=== PATIENT | male | born 1935 | race Caucasian/White ===

== ENCOUNTER → 2017-09-16 | Outpatient (CLI) | payer MEDICARE, OTHER ==
[~2017-09-16] MED LIST: ACETAMINOPHEN325 M1 PO; ADVIL100 M2 PO; ALLERGY RELIEF10 M3 PO; ALLOPURINOL 30300 M2 PO; ANALPRAM HC 1%30 GM; APAP500 PO; APAP650 PO; ASA81BEC PO; BENAZEPRIL HCL20 MG PO; COLACE100 MG PO; COLCHICINE 0.60.6 M1 PO; COLCRYS PO; IBUPROFEN 200200 M1 PO; ISOSORBIDE MONO30 M1 PO; K-DUR 20 MEQ T20 MEQ PO; LASIX 40 MG TAB40 M1 PO; LIPITOR20 MG PO; MUCINEX600 MG PO; MULTIVITAMINS; PRILOSEC 20 MG20 MG PO; PRILOSEC20 MG PO; STEROID EYE DROP OPHTHALMIC; TOPICORT15 G1 TP; TYLENOL325 MG PO; VITAMIN D-32000 UNIT PO; VITAMIN D1000 UNIT PO; VITAMIN D250000 UNIT PO; ZEASORB; [UNRECOGNIZED DRUG - REMARK] OPHTHALMIC; [UNRECOGNIZED DRUG - REMARK] OTIC
== END ==
LOC: M.ULTRA 10:49
DX: N50.3 Cyst of epididymis (principal)

== ENCOUNTER → 2018-01-27 | Outpatient (CLI) | payer MEDICARE, OTHER ==
--- NOTE | 2018-01-27 13:38 | EXE ---
[place] [address] STRESS ECHOCARDIOGRAM Name: WERNER RASCON Room: [facility]#: [id number] Admission: 01/27/18 Attend Phys: Stephanie Chaidez Discharge: Date of : 37 Date of Service: 01/27/18 1337 Report #: [id number] THIS REPORT FOR: //name// APPROVED REPORT Study performed: 01/27/2018 11:18:28 Exam: Dobutamine Stress Echo Indication: Dyspnea , Dizziness Patient Location: Out-Patient Stress Nurse: Roya Mcpherson RN Supervising Physician: Flavio Menjivar MD Status: routine Ht: 6 ft 1 in HR: 72 bpm BP: 125/61 mmHg Rhythm: NSR Medical History Cardiac Risk Factors: Hyperlipidemia, HTN, FHX of CAD Procedure The patient underwent an Exercise Stress Test using the Catracho Protocol. Blood pressure, heart rate, and EKG were monitored. An Echocardiogram was performed by fabrication technician in four stages in quad fashion. At peak stress, four selected images were obtained and placed side by side with resting images for comparison. Echo Enhancing Agent Indication: Endocardial border delineation Agent(s) / Amount(s) Used: Optison 10 cc Stress Test Details Stress Test: Pharmacological Stress Test using Dobutamine. HR Resting HR: 72 bpm Max Heart Rate (APMHR): 139 bpm Max HR Achieved: 118 bpm Target HR (85% APMHR): 118 bpm % of APMHR: 84 Recovery HR: 91 bpm HR response to stress: Normal HR response to stress BP Resting BP: 125/61 mmHg Max BP: 116/33 [place] [address] STRESS ECHOCARDIOGRAM Name: WERNER RASCON Room: [facility]#: [id number] Admission: 01/27/18 Attend Phys: Stephanie Garcia [facility] Discharge: Date of : 37 Date of Service: 01/27/181336 Report #: [id number] Recovery BP: 114/41 mmHg ECG Clinical Reason for Termination: Completed protocol Pre-Stress Echo The resting Echocardiogram showed normal left ventricular contractility with an estimated Ejection Fraction of about 55-60%. Normal wall motion in all segments on baseline images. Post-Stress Echo The stress Echocardiogram showed normal left ventricular contractility with an estimated Ejection Fraction of about >70%. Normal augmentation of wall motion in all segments on post stress images. Conclusion Clinical Response: Non-ischemic Stress ECG Response: Indeterminant Stress Echo Images: Non-ischemic Other Information Technically limited study due to body habitus. <ELECTRONICALLY SIGNED> By: Flavio Menjivar MD, [facility] 01/27/18 1337 36 1337 Flavio Menjivar MD, FACC /INF
== END ==
LOC: M.ULTRA 09:36 → M.CRD 11:00
DX: G45.9 Transient cerebral ischemic attack, unspecified (principal); R42 Dizziness and giddiness

== ENCOUNTER → 2018-03-08 | Outpatient (CLI) | payer MEDICARE, OTHER | LOC: M.RAD 17:02 | DX: R06.2 Wheezing (principal); R06.02 Shortness of breath; I10 Essential (primary) hypertension; E78.5 Hyperlipidemia, unspecified ==

== ENCOUNTER → 2018-04-22 | Outpatient (CLI) | payer MEDICARE, OTHER ==
[2018-04-22 11:52] LABS: CALCIUM 9.5 mg/dL (8.5-10.1); CREATININE 1.1 mg/dL (0.6-1.3); POTASSIUM 4.3 mmol/L (3.5-5.1)
== END ==
LOC: M.LAB 11:11
PROVIDERS: Nurse Practitioner
DX: I50.32 Chronic diastolic (congestive) heart failure (principal); E78.5 Hyperlipidemia, unspecified; I10 Essential (primary) hypertension

== ENCOUNTER 2018-10-01 11:37 | Inpatient (IN) | payer MEDICARE, OTHER ==
[~2018-10-01] VITALS: Ht 188 cm; Wt 127.0 kg
[~2018-10-01 11:37] MED LIST changes: +ALLERGY RELIEF10 M1 PO; -ALLERGY RELIEF10 M3 PO; -PRILOSEC20 MG PO; -ZEASORB; +ZEASORB POWDER71 GM TP
[2018-10-01 11:38] VITALS: BP 149/73
[2018-10-01] MEDS ORDERED: FIBER0.4 GM PO (11:47)
[2018-10-01] MEDS ORDERED: FLOMAX0.4 MG PO (11:47)
[2018-10-01] MEDS ORDERED: AVAPRO75 MG PO (11:47)
[2018-10-01] MEDS ORDERED: MAXZIDE-25 MG1 EACH PO (11:47)
[2018-10-01 12:25] LABS: ABSOLUTE EOSINOPHILS 0.2 thou/uL (0.0-0.7); ABSOLUTE LYMPHOCYTES 1.6 thou/uL (0.8-5.3); ABSOLUTE MONOCYTES 0.3 thou/uL (0.0-1.2); ABSOLUTE NEUTROPHILS 2.8 thou/uL (1.6-8.1); BASOPHILS 0.7 %; EOSINOPHILS 4.2 %; HEMATOCRIT 42.5 % (42.0-52.0); HEMOGLOBIN 14.4 gm/dL (14.0-18.0); MCH 33.7 pg (26.0-34.0); MCV 99.1 fL (80.0-100.0); MONOCYTES 5.1 %; MPV 7.6 fl. (7.2-11.1); NUCLEATED RBCS 0 /100WBC; PLATELET COUNT* 175 thou/uL (150-400); RBC 4.29 mil/uL (4.50-6.00); RDW-CV 13.5 % (10.5-14.5); WBC 4.9 thou/uL (4.0-11.0)
[2018-10-01 12:36] LABS: APTT 27.1 Seconds (25.0-31.3); INR 1.1; PROTIME 10.8 Seconds (9.20-11.50)
[2018-10-01 12:45] LABS: ANION GAP 6 mmol/L (7-16); BUN 19 mg/dL (7-18); CHLORIDE 96 mmol/L (98-107); CO2 31 mmol/L (21-32); CREATININE 1.3 mg/dL (0.6-1.3); GLUCOSE 166 mg/dL (70-99); SODIUM 133 mmol/L (136-145); TROPONIN-I LEVEL <0.06 ng/mL (<0.06)
[2018-10-01 12:46] LABS: ALBUMIN 3.4 g/dL (3.4-5.0); ALKALINE PHOSPHATASE 108 U/L (46-116); CK-MB MASS 0.8 ng/mL (<0.5-3.6); LIPASE 213 U/L (73-393); MAGNESIUM 1.6 mg/dL (1.8-2.4); NT-PRO BRAIN NAT PEPTIDE 41 pg/mL (<300); SGOT 25 U/L (15-37); SGPT 31 U/L (30-65); TOTAL BILIRUBIN 0.9 mg/dL (<0.1-1.0); TOTAL PROTEIN 7.1 g/dL (6.4-8.2)
[2018-10-01 15:00] VITALS: BP 131/69
[2018-10-01 15:10] VITALS: BP 111/58
[2018-10-01 20:00] VITALS: BP 101/55
[2018-10-02] VITALS: BP 88/39
[2018-10-02 04:00] VITALS: BP 95/33
--- NOTE | 2018-10-02 05:39 | NUR ---
PT REMAINED ON ROOM AIR FOR ALL OF NOC OX.
[2018-10-02 08:00] VITALS: BP 101/56
--- NOTE | 2018-10-02 08:22 | CON ---
[address] [address] CONSULTATION Name: WERNER RASCON Room: [address] IN ..#: [id number] Admission: 10/01/18 Attend Phys: Leandro Naylor MD Discharge: Date of : 37 Report #: [id number] THIS REPORT FOR: //name// CC: Leandro Love TYPE OF REPORT: Cardiology consultation. INDICATION: Chest pain. HISTORY OF PRESENT ILLNESS: The patient is an 83-year-old white male who was admitted with chest discomfort this morning. He states his pain began last night for a prolonged period of time and radiated to his left arm. He describes the pain as being rather severe and associated with some shortness of breath. The pain occurred while he was watching TV. The pain then did resolve. He was able to sleep; however, this morning when he awoke, he continued to have pain radiating to his left arm associated with some dizziness. He presented to the Emergency Room for further evaluation. At the time of my interview, he is pain free. He is without other cardiac complaint at this time. A 12-lead EKG showed no acute ST elevations abnormalities. Troponins were unremarkable. PAST MEDICAL HISTORY: 1. 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 2. Hypertension. 3. Hyperlipidemia. 4. Type 2 diabetes mellitus. PAST SURGICAL HISTORY: 1. Tonsillectomy. 2. Appendectomy. 3. Cholecystectomy. 4. Back surgery. ALLERGIES: No known drug allergies. HOME MEDICATIONS: Omeprazole 20 mg daily, Tylenol p.r.n., Avapro 75 mg daily, Flomax 0.4 mg daily, Maxzide 25 one tablet daily, fiber tablets 0.4 grams daily, Lotensin 20 mg b.i.d., Colace 100 mg p.r.n., multivitamin 1 tablet daily, enteric-coated aspirin 81 mg daily, loratadine 10 mg daily, Mucinex 1200 mg q. 12 hours, Colcrys 0.6 mg daily, allopurinol 300 mg daily, atorvastatin 40 mg at bedtime, ibuprofen p.r.n. and vitamin D 1000 units weekly. FAMILY HISTORY: The patient's father had heart disease. SOCIAL HISTORY: The patient is . He is a lifelong nonsmoker. 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 He wears glasses without acute visual loss, otherwise unremarkable. PHYSICAL EXAMINATION: VITAL SIGNS: Blood pressure 111/58 and pulse 70 and regular. GENERAL: This is a pleasant gentleman in no distress. Mood and affect appropriate. HEENT: The extraocular muscles are intact. Mucous membranes are moist. NECK: Shows no jugular venous distention. There are no carotid bruits. CHEST: Reveals clear lung goldsmith without wheezes, rales or rhonchi. CARDIOVASCULAR: Reveals regular rhythm with normal S1 and S2. I do not appreciate gallop or murmur. ABDOMEN: Reveals normal bowel sounds. The abdomen is soft and nontender. EXTREMITIES: Shows trace edema. Peripheral pulses are 2+ and easily palpable. SKIN: Warm and dry. RADIOLOGICAL DATA: A 12-lead EKG shows sinus rhythm without acute ST or T-wave abnormality. LABORATORY DATA: Labs are reviewed. Troponin is less than 0.06 on 2 separate occasions. NT-pro-BNP is 41. IMPRESSION AND RECOMMENDATIONS: 1. Coronary artery disease. The patient has recurrent chest discomfort. He has not had pain for some time until now. At this point in time, I believe noninvasive stress testing would be indicated. We will evaluate overnight and consider whether the patient could be discharged to home and follow up with outpatient stress testing versus remaining in the hospital for stress testing, pending results of final enzymes and clinical course. 2. Hypertension, adequately controlled on cardiac regimen outlined above. 3. Hyperlipidemia. Continue atorvastatin 40 mg at bedtime. 4. Type 2 diabetes mellitus per primary physician. <ELECTRONICALLY SIGNED> By: Eugene Vizcaino MD, FACC 10/02/18 0822 [id number] [id number] Vizcaino MD, FACC /nt
--- NOTE | 2018-10-02 10:49 | NUR ---
PT A/O, TELE TRACKING NSR WITH 1ST AVB AND BBB, ALL VSS ON ROOM AIR. CONTINUES TO DENY CP, SOA. LOOKING FORWARD TO DC LATER TODAY. EDUCATED ON SAFETY AND PLAN OF CARE. PLEASE ASSESSMENT FOR ADDITIONAL INFORMATION. WILL CONT TO MONITOR
[2018-10-02 11:14] VITALS: BP 101/56
--- NOTE | 2018-10-02 12:12 | EKG ---
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 : 1935 Requested By: Tyshawn Wagner Order Number: [id number] MD: Eugene Vizcaino Measurements Intervals [place] Rate: 86 P: -1 AL: 198 QRS: -61 QRSD: 141 T: 121 QT: 420 QTc: 503 Interpretive Statements Sinus rhythm Ventricular premature complexes IVCD, consider atypical RBBB Anterolateral infarct, age indeterminate, possible Compared to ECG 08/14/2013 09:32:35 Ventricular premature complex(es) now present Myocardial infarct finding still present Electronically Signed On 10-02-2018 12:12:28 CDT by Eugene Vizcaino [email or web address] <ELECTRONICALLY SIGNED> By: Eugene Vizcaino MD, FACC 10/02/18 1212 1140 1140 Eugene Vizcaino MD, FACC /EPI
== END 2018-10-02 11:53 | disposition home or self-care (01) | DRG 313 ==
LOC: M.ERS 11:37 → M.TBA-ER 13:06 → M.2W 15:43
PROVIDERS: Emergency Medicine
DX: R07.89 Other chest pain (principal); I10 Essential (primary) hypertension; I25.10 Atherosclerotic heart disease of native coronary artery without angina pectoris; E78.5 Hyperlipidemia, unspecified; E11.9 Type 2 diabetes mellitus without complications; Z79.82 Long term (current) use of aspirin; Z79.899 Other long term (current) drug therapy; Z79.1 Long term (current) use of non-steroidal anti-inflammatories (NSAID); Z82.49 Family history of ischemic heart disease and other diseases of the circulatory system; Z90.49 Acquired absence of other specified parts of digestive tract

== ENCOUNTER 2019-05-19 13:02 | Inpatient (IN) | payer MEDICARE, OTHER ==
[~2019-05-19] VITALS: Ht 185.4 cm; Wt 129.3 kg
[~2019-05-19 13:02] MED LIST changes: +ALLOPURINOL 10100 M1 PO; -ALLOPURINOL 30300 M2 PO; +AVAPRO75 MG PO; +FIBER0.4 GM PO; +FLOMAX0.4 MG PO; +MAXZIDE-25 MG1 EACH PO
[2019-05-19 13:06] VITALS: BP 141/97
[2019-05-19 13:47] LABS: ABSOLUTE EOSINOPHILS 0.1 thou/uL (0.0-0.7); ABSOLUTE LYMPHOCYTES 1.8 thou/uL (0.8-5.3); ABSOLUTE MONOCYTES 0.6 thou/uL (0.0-1.2); BASOPHILS 0.4 %; EOSINOPHILS 1.8 %; HEMATOCRIT 42.8 % (42.0-52.0); HEMOGLOBIN 14.9 gm/dL (14.0-18.0); LYMPHOCYTES 27.6 %; MCH 34.7 pg (26.0-34.0); MCHC 34.8 g/dL (28.0-37.0); MCV 99.9 fL (80.0-100.0); MONOCYTES 8.6 %; MPV 8.2 fl. (7.2-11.1); NUCLEATED RBCS 0 /100WBC; PLATELET COUNT* 179 thou/uL (150-400); POLYS 61.6 %; RBC 4.28 mil/uL (4.50-6.00); RDW-CV 13.3 % (10.5-14.5); WBC 6.5 thou/uL (4.0-11.0)
[2019-05-19 13:53] LABS: CREATININE 1.1 mg/dL (0.6-1.3)
[2019-05-19 13:58] LABS: PROTIME 10.7 Seconds (9.20-11.50)
[2019-05-19 14:03] LABS: ALBUMIN 3.6 g/dL (3.4-5.0); TOTAL BILIRUBIN 0.9 mg/dL (<0.1-1.0); TOTAL PROTEIN 7.8 g/dL (6.4-8.2)
--- NOTE | 2019-05-19 14:40 | EKG ---
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 : 1935 Requested By: Mahsa Potter Order Number: [id number] MD: Flavio Menjivar Measurements Intervals [place] Rate: 76 P: 77 CA: 225 QRS: -27 QRSD: 137 T: 128 QT: 399 QTc: 449 Interpretive Statements Sinus rhythm Prolonged CA interval Nonspecific intraventricular conduction delay Nonspecific T abnrm, anterolateral leads Compared to ECG 10/01/2018 11:40:38 First degree AV block now present Ventricular premature complex(es) no longer present Electronically Signed On 05-19-2019 14:39:59 CDT by Flavio Menjivar [email or web address] <ELECTRONICALLY SIGNED> By: Flavio Menjivar MD, [facility] 05/19/19 1439 1308 1308 Flavio Menjivar MD, [facility] /EPI
[2019-05-19 17:13] LABS: URINE BILIRUBIN NEGATIVE (Negative); URINE BLOOD NEGATIVE (Negative); URINE CLARITY CLEAR; URINE COLOR YELLOW; URINE GLUCOSE-RANDOM NEGATIVE (Negative); URINE KETONES NEGATIVE (Negative); URINE LEUKOCYTES-REFLEX NEGATIVE (Negative); URINE NITRITE-REFLEX NEGATIVE (Negative); URINE PROTEIN NEGATIVE (Negative); URINE SPECIFIC GRAVITY <= 1.005 (1.005-1.030); URINE UROBILINOGEN 0.2 E.U./dl (0.2-1.0)
[2019-05-19 18:26] VITALS: BP 131/77
[2019-05-19 18:40] VITALS: BP 155/57
--- NOTE | 2019-05-19 19:01 | NUR ---
RECEIVED PT FROM ER 1840. GET SITUATED TO ROOM. TELE IN PLACED TRACING SR 1ST DEGREE. AOX4, UP AD ETHAN, O2 SAT 90'S RA. CALL LIGHT WITHIN REACH, HOURLY ROUNDING. WILL CONTINUE TO MONITOR.
[2019-05-19 20:00] VITALS: BP 128/61
[2019-05-19] MEDS ORDERED: COLCRYS0.6 MG PO (21:19)
[2019-05-19] MEDS ORDERED: MIRALAX119 GM PO (21:25)
[2019-05-20] VITALS: BP 129/67
[2019-05-20 04:00] VITALS: BP 100/48
--- NOTE | 2019-05-20 04:04 | NUR ---
ASSUMED PT CARE AT APPROX 1930. PT IS AWAKE AND ORIENTED X4. VSS. DIRECTOR DIGITAL CATALOGUE IN PLACE TRACING SR w/ 1st DEGREE AVB. ASSESSMENT DONE AND CHARTED. PT DENIES CHEST DISCOMFORT OF THIS TIME. PT IS ADVISED TO HAVE NOTHING BY MOUTH POST MIDNIGHT ORDERED. PT IS ABLE TO SLEEP MOST OF THE NIGHT. CALL LIGHT WITHIN REACH. HOURLY ROUNDING DONE FOR PT SAFETY. FALL PRECAUTIONS IN PLACE.
[2019-05-20 07:00] VITALS: BP 103/49
--- NOTE | 2019-05-20 07:24 | NUR ---
INITAL ASSESSMENT COMPLETED CHARTED. VSS. TRACING SR ON MONITOR. PT DENIES CP, PAIN,SOA, N/V/D. PT DENIES ANY FURTHER NEEDS AT THIS TIME. HOURLY ROUNDING IN PLACE FOR PT SAFETY. CLWR.
[2019-05-20 10:10] VITALS: BP 99/52
[2019-05-20 11:56] LABS: HEMATOCRIT 44.4 % (42.0-52.0); HEMOGLOBIN 15.4 gm/dL (14.0-18.0); MCH 34.2 pg (26.0-34.0); MCHC 34.8 g/dL (28.0-37.0); MCV 98.3 fL (80.0-100.0); MPV 7.8 fl. (7.2-11.1); RBC 4.51 mil/uL (4.50-6.00); RDW-CV 13.1 % (10.5-14.5); WBC 7.8 thou/uL (4.0-11.0)
[2019-05-20 12:05] LABS: CALCIUM 9.2 mg/dL (8.5-10.1); CREATININE 1.1 mg/dL (0.6-1.3); POTASSIUM 4.3 mmol/L (3.5-5.1)
[2019-05-20 13:28] VITALS: BP 136/67
--- NOTE | 2019-05-21 10:40 | CON ---
[address] [address] CONSULTATION Name: WERNER RASCON Room: [address]#: [id number] Admission: 05/19/19 Attend Phys: Angel Germain Discharge: 05/20/19 Date of : 37 Report #: [id number] THIS REPORT FOR: //name// CC: MD Facundo Walker DATE OF SERVICE: 05/20/2019 INDICATION: Chest pain. HISTORY OF PRESENT ILLNESS: The patient is a pleasant 83-year-old gentleman, who reports a history of coronary artery disease based on catheterization in 2009. He denies any history of myocardial infarction. He was admitted yesterday through the Emergency Room with complaints of a dull left upper chest discomfort and dizziness. The pain persisted for 2 hours. EKG did not show ST elevation. He did rule out for myocardial infarction with serial enzymes. At the time for interview, he is pain free and without complaint. Cardiac risk factors include hypertension, dyslipidemia, and type 2 diabetes mellitus. PAST MEDICAL HISTORY: 1. Coronary artery disease. 2. Hypertension. 3. Hyperlipidemia. 4. Type 2 diabetes mellitus. PAST SURGICAL HISTORY: 1. Tonsillectomy. 2. Appendectomy. 3. Cholecystectomy. 4. Back surgery. ALLERGIES: None known. HOME MEDICATIONS: Tylenol p.r.n., allopurinol 100 mg b.i.d., aspirin 81 mg daily, atorvastatin 40 mg at bedtime, benazepril 20 mg b.i.d., vitamin D 1000 units b.i.d., colchicine 0.6 mg p.r.n., Colace 100 mg p.r.n., guaifenesin 1200 mg b.i.d., ibuprofen 200 mg q. 4 hours, irbesartan 150 mg daily, multivitamin 1 tablet daily, omeprazole 20 mg daily, MiraLax 17 grams daily, Flomax 0.4 mg daily, Maxzide 25 one tablet daily. REVIEW OF SYSTEMS: A 14-point review of systems is positive for chest discomfort, dyspnea, mild lower extremity swelling, type 2 diabetes mellitus, history of skin cancer. He wears glasses. Otherwise, 14-point review of systems [place] [address] CONSULTATION Name: WERNER RASCON Room: [address]#: [id number] Admission: 05/19/19 Attend Phys: Angel Germain Discharge: 05/20/19 Date of : 37 Report #: [id number] PHYSICAL EXAMINATION: VITAL SIGNS: Stable. Blood pressure 100/48, pulse is 68 and regular. GENERAL: This is a pleasant gentleman, who is in no distress. Mood and affect appropriate. HEENT: Extraocular muscles intact. Mucous membranes are moist. NECK: Shows no jugular venous distention. There are no carotid bruits. CHEST: Reveals clear lung goldsmith. CARDIAC: Reveals a regular rhythm without gallop or murmur. ABDOMEN: Reveals normal bowel sounds. The abdomen is soft and nontender. EXTREMITIES: Shows no edema. Peripheral pulses are palpable. SKIN: Warm and dry. IMPRESSION AND RECOMMENDATIONS: 1. Chest pain. The patient has ruled out for myocardial infarction. I believe he could follow up with outpatient stress testing. 2. Hypertension. Blood pressure low normal presently. The patient is stable with this. Continue current cardiac regimen. 3. Dyslipidemia. Continue atorvastatin at current dose. 4. Diabetes per primary physician. From a cardiac standpoint, the patient could be discharged for outpatient followup with stress testing. <ELECTRONICALLY SIGNED> By: Eugene Vizcaino MD, FACC 05/21/19 1040 0907 [id number] Vizcaino MD, FACC /nt
== END 2019-05-20 13:45 | disposition home or self-care (01) | DRG 315 ==
LOC: M.ERS 13:02 → M.TBA-ER 17:26 → M.2W 18:31
PROVIDERS: Internal Medicine; Personal Emergency Response Attendant; ADMIT Internal Medicine
DX: I31.3 Pericardial effusion (noninflammatory) (principal); E87.1 Hypo-osmolality and hyponatremia; I10 Essential (primary) hypertension; E78.5 Hyperlipidemia, unspecified; E11.9 Type 2 diabetes mellitus without complications; I25.10 Atherosclerotic heart disease of native coronary artery without angina pectoris; N40.0 Benign prostatic hyperplasia without lower urinary tract symptoms; J30.9 Allergic rhinitis, unspecified; K21.9 Gastro-esophageal reflux disease without esophagitis; Z90.49 Acquired absence of other specified parts of digestive tract; Z79.899 Other long term (current) drug therapy; Z79.82 Long term (current) use of aspirin; Z79.1 Long term (current) use of non-steroidal anti-inflammatories (NSAID)

== ENCOUNTER → 2020-10-28 | Outpatient (CLI) | payer MEDICARE, OTHER ==
[~2020-10-28] MED LIST changes: +AVAPRO 150 MG150 MG PO; +COLCRYS0.6 MG PO; +DRIZALMA SPRINK60 MG PO; +GABAPENTIN600 M1 PO; +MIRALAX119 GM PO; +TERBINAFINE HC250 MG PO; +TRIAMTERENE/HCT1 CA1 PO
== END ==
LOC: M.PC 11:08
PROVIDERS: ATTEND Physical Medicine & Rehabilitation
DX: M51.16 Intervertebral disc disorders with radiculopathy, lumbar region (principal); M47.26 Other spondylosis with radiculopathy, lumbar region; M48.061 Spinal stenosis, lumbar region without neurogenic claudication; M79.604 Pain in right leg; M79.605 Pain in left leg

== ENCOUNTER → 2020-11-06 | Outpatient (CLI) | payer MEDICARE, OTHER | END | disposition home or self-care (01) | LOC: M.PC 09:12 | PROVIDERS: ATTEND Physical Medicine & Rehabilitation | DX: M54.18 Radiculopathy, sacral and sacrococcygeal region (principal); G89.29 Other chronic pain; I10 Essential (primary) hypertension; E11.9 Type 2 diabetes mellitus without complications; I25.10 Atherosclerotic heart disease of native coronary artery without angina pectoris; E78.5 Hyperlipidemia, unspecified; Z98.890 Other specified postprocedural states; Z79.899 Other long term (current) drug therapy ==

== ENCOUNTER → 2020-11-20 | Outpatient (CLI) | payer MEDICARE, OTHER | LOC: M.PC 10:08 | PROVIDERS: ATTEND Physical Medicine & Rehabilitation | DX: M51.16 Intervertebral disc disorders with radiculopathy, lumbar region (principal); M48.061 Spinal stenosis, lumbar region without neurogenic claudication; M47.26 Other spondylosis with radiculopathy, lumbar region; M79.605 Pain in left leg; M79.604 Pain in right leg ==

== ENCOUNTER → 2020-11-27 | Outpatient (CLI) | payer MEDICARE, OTHER | END | disposition home or self-care (01) | LOC: M.PC 10:12 | PROVIDERS: ATTEND Physical Medicine & Rehabilitation | DX: M47.816 Spondylosis without myelopathy or radiculopathy, lumbar region (principal); M54.5 Low back pain; I10 Essential (primary) hypertension; E11.9 Type 2 diabetes mellitus without complications; I25.10 Atherosclerotic heart disease of native coronary artery without angina pectoris; E78.5 Hyperlipidemia, unspecified; Z98.890 Other specified postprocedural states; Z79.899 Other long term (current) drug therapy ==

== ENCOUNTER → 2020-12-11 | Outpatient (CLI) | payer MEDICARE, OTHER | LOC: M.PC 08:53 | PROVIDERS: ATTEND Physical Medicine & Rehabilitation | DX: M51.16 Intervertebral disc disorders with radiculopathy, lumbar region (principal); M48.061 Spinal stenosis, lumbar region without neurogenic claudication; M47.26 Other spondylosis with radiculopathy, lumbar region; Z79.899 Other long term (current) drug therapy; Z79.891 Long term (current) use of opiate analgesic ==

== ENCOUNTER → 2020-12-30 | Outpatient (CLI) | payer MEDICARE, OTHER ==
[~2020-12-30] MED LIST changes: +ACYCLOVIR 200200 MG PO; +CYMBALTA60 MG PO; -DRIZALMA SPRINK60 MG PO; +PRILOSEC OTC20 MG PO
== END | disposition home or self-care (01) ==
LOC: M.PC 09:50
PROVIDERS: ATTEND Physical Medicine & Rehabilitation
DX: M47.816 Spondylosis without myelopathy or radiculopathy, lumbar region (principal); M51.36 Other intervertebral disc degeneration, lumbar region; M48.061 Spinal stenosis, lumbar region without neurogenic claudication; G89.29 Other chronic pain; I10 Essential (primary) hypertension; E11.9 Type 2 diabetes mellitus without complications; M19.90 Unspecified osteoarthritis, unspecified site; Z98.890 Other specified postprocedural states; Z79.899 Other long term (current) drug therapy

== ENCOUNTER → 2021-01-15 | Outpatient (CLI) | payer MEDICARE, OTHER | END | disposition home or self-care (01) | LOC: M.PC 08:42 | PROVIDERS: ATTEND Physical Medicine & Rehabilitation | DX: M47.816 Spondylosis without myelopathy or radiculopathy, lumbar region (principal); M51.36 Other intervertebral disc degeneration, lumbar region; M48.061 Spinal stenosis, lumbar region without neurogenic claudication; M54.16 Radiculopathy, lumbar region; M54.5 Low back pain; M79.605 Pain in left leg; M79.604 Pain in right leg; G89.29 Other chronic pain; I10 Essential (primary) hypertension; E11.9 Type 2 diabetes mellitus without complications; M19.90 Unspecified osteoarthritis, unspecified site; Z98.890 Other specified postprocedural states; Z79.899 Other long term (current) drug therapy ==

== ENCOUNTER → 2021-01-22 | Outpatient (CLI) | payer MEDICARE, OTHER | LOC: M.PC 10:12 | PROVIDERS: ATTEND Physical Medicine & Rehabilitation | DX: M47.26 Other spondylosis with radiculopathy, lumbar region (principal); M51.16 Intervertebral disc disorders with radiculopathy, lumbar region; Z79.891 Long term (current) use of opiate analgesic; Z79.899 Other long term (current) drug therapy ==

== ENCOUNTER → 2021-01-27 | Outpatient (CLI) | payer MEDICARE, OTHER | LOC: M.LAB 05:24 | PROVIDERS: ATTEND Anesthesiology | DX: E87.6 Hypokalemia (principal) ==

== ENCOUNTER → 2021-03-10 | Outpatient (CLI) | payer MEDICARE, OTHER | LOC: M.PC 09:59 | PROVIDERS: ATTEND Physical Medicine & Rehabilitation | DX: M51.16 Intervertebral disc disorders with radiculopathy, lumbar region (principal); M48.061 Spinal stenosis, lumbar region without neurogenic claudication; M79.604 Pain in right leg; M79.605 Pain in left leg ==